=== PATIENT | female | born 1930 | race Caucasian/White ===

== ENCOUNTER 2018-06-13 10:43 | Inpatient (IN) | payer MEDICARE ==
[~2018-06-13] VITALS: Ht 157.5 cm; Wt 63.0 kg
[~2018-06-13 10:43] MED LIST: ASPI-1071 PO; HYDR-3564 PO; LISI-600 PO; NITR0.4T SL; OMEP20TA5 PO; ONDA4TAB6 PO; [UNRECOGNIZED DRUG - CODE] MC
[2018-06-13] MEDS ORDERED: LACT1CAP65 PO (11:05)
[2018-06-13] MEDS ORDERED: GLIP5TAB13 PO (11:05)
[2018-06-13] MEDS ORDERED: POTA10TA10 PO (11:05)
[2018-06-13] MEDS ORDERED: normal saline 1000ml 1,000 ML IV SCH (12:46)
[2018-06-13] MEDS ORDERED: ondansetron/PF 4mg/2ml inj IV PRN (12:50)
[2018-06-13] MEDS ORDERED: HYDROmorphone inj. 0.5 MG/0.5 ML DISP.SYRIN IV PRN (12:50)
[2018-06-13] MEDS ORDERED: magnesium 4gm in 100ml NS 100 ML IV PRN (12:50)
[2018-06-13] MEDS ORDERED: magnesium Cl slow-release 64mg tablet PO PRN (12:50)
[2018-06-13] MEDS ORDERED: potassium Cl 20 mEq SR tablet PO PRN ×2 (12:50)
[2018-06-13] MEDS ORDERED: magnesium hydroxide 30ml (MOM) UD suspension PO PRN (12:50)
[2018-06-13] MEDS ORDERED: acetaminophen 325mg tablet PO PRN (12:50)
[2018-06-13] MEDS ORDERED: magnesium 1gm/100ml D5W IVPB 100 ML IV PRN (12:50)
[2018-06-13] MEDS ORDERED: potassium Cl 40MEQ/NS 500ml 500 ML IV PRN ×2 (12:50)
[2018-06-13] MEDS ORDERED: mag hydrox/Alum hydrox/simeth 30ml oral suspension PO PRN (12:50)
[2018-06-13 18:10] VITALS: BP 93/33
[2018-06-13] MEDS ORDERED: heparin, porcine 5000 units/ml vial SQ SCH (20:00)
[2018-06-13] MEDS: lactobacillus rhamnosus 10,000 MMU CELLS/CAPSULE PO SCH (20:00)
[2018-06-13 22:00] VITALS: BP 98/26
[2018-06-13] MEDS: morphine 10mg/0.5ml (conc. morphine) oral syringe PO PRN (22:05)
[2018-06-14] MEDS: LORazepam 1 MG tablet PO PRN ×3 (03:28→22:11)
[2018-06-14 03:30] VITALS: BP 125/81
[2018-06-14 05:00] VITALS: BP 87/83
[2018-06-14 05:51] LABS: BASOPHILS % (AUTO) 0.2 % (0-1); EOSINOPHILS # (AUTO) 0.1 X10'3 (0-0.9); EOSINOPHILS % (AUTO) 0.8 % (0-6); HEMOGLOBIN 7.5 g/dl (12.0-16.0); LYMPHOCYTES # (AUTO) 0.8 X10'3 (1.1-4.8); MEAN CORPUSCULAR HEMOGLOBIN 26.7 PG (27.0-31.0); MEAN CORPUSCULAR HGB CONC 32.7 % (33.0-36.5); MEAN CORPUSCULAR VOLUME 81.8 FL (78-98); MEAN PLATELET VOLUME 9.4 FL (7.4-10.4); MONOCYTES # (AUTO) 0.4 X10'3 (0-0.9); MONOCYTES % (AUTO) 4.1 % (2-12); NEUTROPHILS # (AUTO) 9.1 X10'3 (1.8-7.7); NEUTROPHILS % (AUTO) 86.9 % (42-75); PLATELET COUNT 130 X10'3 (140-440); RED BLOOD COUNT 2.82 X10'6 (4.20-5.60); RED CELL DISTRIBUTION WIDTH 19.6 % (11.5-14.5); WHITE BLOOD COUNT 10.4 X10'3 (4.5-11.0)
[2018-06-14 06:15] LABS: ALANINE AMINOTRANSFERASE 15 U/L (12-78); ALBUMIN 1.7 G/DL (3.4-5.0); ALBUMIN/GLOBULIN RATIO 0.4 (1.1-1.5); ALKALINE PHOSPHATASE 112 IU/L (46-116); ANION GAP 17 (8-16); ASPARTATE AMINO TRANSFERASE 26 U/L (10-37); BILIRUBIN,TOTAL 1.5 MG/DL (0.1-1.0); BLOOD UREA NITROGEN 61 MG/DL (7-18); CALCIUM 7.5 MG/DL (8.5-10.1); CHLORIDE 105 MMOL/L (99-107); CREATININE 4.08 MG/DL (0.40-0.90); GLUCOSE 168 MG/DL (70-104); MAGNESIUM 1.4 MG/DL (1.5-2.4); POTASSIUM 4.9 MMOL/L (3.5-5.1); SODIUM 135 MMOL/L (135-145); TOTAL PROTEIN 6.1 G/DL (6.4-8.2); eGFR 10 ML/MIN
[2018-06-14 06:29] LABS: TOTAL CARBON DIOXIDE 13.3 MMOL/L (24-32)
[2018-06-14 06:46] LABS: ANISOCYTOSIS 2+; PLATELET ESTIMATE DECREASED
[2018-06-14] MEDS: pantoprazole 40mg Tablet.DR PO SCH (07:30)
[2018-06-14] MEDS: lactobacillus rhamnosus 10,000 MMU CELLS/CAPSULE PO SCH ×2 (08:00→19:55)
[2018-06-14] MEDS: potassium chloride 10mEq ER tablet PO SCH (08:00)
[2018-06-14] MEDS ORDERED: K and/or MAG REPLACEMENT MC SCH (08:00)
[2018-06-14] MEDS ORDERED: CefTRIAXone/D5W-Rocephin 1gm 50 ML IV SCH (08:00)
[2018-06-14 10:00] VITALS: BP 113/53
[2018-06-14] MEDS ORDERED: HYDROcodone/acetaminophen 5mg/325mg tablet PO PRN (12:00)
[2018-06-14] MEDS: morphine 10mg/0.5ml (conc. morphine) oral syringe PO PRN (21:16)
[2018-06-14 22:00] VITALS: BP 128/41
[2018-06-15 06:46] LABS: ALANINE AMINOTRANSFERASE 20 U/L (12-78); ALBUMIN 1.7 G/DL (3.4-5.0); ALBUMIN/GLOBULIN RATIO 0.4 (1.1-1.5); ALKALINE PHOSPHATASE 109 IU/L (46-116); ANION GAP 16 (8-16); ASPARTATE AMINO TRANSFERASE 29 U/L (10-37); BILIRUBIN,TOTAL 1.1 MG/DL (0.1-1.0); BLOOD UREA NITROGEN 67 MG/DL (7-18); BUN/CREATININE RATIO 15.5 (6.6-38.0); CALCIUM 7.9 MG/DL (8.5-10.1); CHLORIDE 106 MMOL/L (99-107); CREATININE 4.33 MG/DL (0.40-0.90); GLUCOSE 130 MG/DL (70-104); SODIUM 138 MMOL/L (135-145); TOTAL CARBON DIOXIDE 16.5 MMOL/L (24-32); TOTAL PROTEIN 6.2 G/DL (6.4-8.2); eGFR 10 ML/MIN
[2018-06-15] MEDS: pantoprazole 40mg Tablet.DR PO SCH ×2 (07:20→07:25)
[2018-06-15] MEDS: lactobacillus rhamnosus 10,000 MMU CELLS/CAPSULE PO SCH ×3 (07:20→20:00)
[2018-06-15] MEDS: morphine 10mg/0.5ml (conc. morphine) oral syringe PO PRN (07:21)
[2018-06-15] MEDS: potassium chloride 10mEq ER tablet PO SCH (07:24)
[2018-06-15 10:00] VITALS: BP 107/41
[2018-06-15] MEDS: LORazepam 1 MG tablet PO PRN ×2 (14:10→22:17)
[2018-06-15 22:15] VITALS: BP 171/62
[2018-06-16] MEDS: morphine 10mg/0.5ml (conc. morphine) oral syringe PO PRN ×2 (05:41→22:16)
[2018-06-16] MEDS: pantoprazole 40mg Tablet.DR PO SCH (07:30)
[2018-06-16] MEDS: lactobacillus rhamnosus 10,000 MMU CELLS/CAPSULE PO SCH ×2 (08:00→20:00)
[2018-06-16] MEDS: potassium chloride 10mEq ER tablet PO SCH (08:00)
[2018-06-16 10:00] VITALS: BP 154/76
[2018-06-16] MEDS: LORazepam 1 MG tablet PO PRN ×3 (11:57→22:56)
[2018-06-16 22:00] VITALS: BP 188/66
[2018-06-17] MEDS: LORazepam 1 MG tablet PO PRN ×2 (04:39→12:52)
[2018-06-17] MEDS: pantoprazole 40mg Tablet.DR PO SCH (07:30)
[2018-06-17] MEDS: potassium chloride 10mEq ER tablet PO SCH (08:00)
[2018-06-17] MEDS: lactobacillus rhamnosus 10,000 MMU CELLS/CAPSULE PO SCH ×2 (08:00→20:00)
[2018-06-17] MEDS: morphine 10mg/0.5ml (conc. morphine) oral syringe PO PRN (10:54)
[2018-06-17] MEDS ORDERED: OLANZapine 2.5MG tablet PO ONE (11:25)
[2018-06-17 18:00] VITALS: BP_SYST 118; BP_SYST 140; BP_DIAS 30; BP_DIAS 33
[2018-06-17 22:00] VITALS: BP 158/60
[2018-06-18] MEDS: pantoprazole 40mg Tablet.DR PO SCH (07:30)
[2018-06-18] MEDS: lactobacillus rhamnosus 10,000 MMU CELLS/CAPSULE PO SCH ×2 (08:00→20:00)
[2018-06-18] MEDS: potassium chloride 10mEq ER tablet PO SCH (08:00)
[2018-06-18 10:00] VITALS: BP 199/92
[2018-06-18] MEDS: morphine 10mg/0.5ml (conc. morphine) oral syringe PO PRN ×2 (16:06→19:59)
[2018-06-18 22:00] VITALS: BP 167/74
[2018-06-19] MEDS: morphine 10mg/0.5ml (conc. morphine) oral syringe PO PRN ×2 (00:40→14:03)
[2018-06-19] MEDS: pantoprazole 40mg Tablet.DR PO SCH (07:03)
[2018-06-19] MEDS: lactobacillus rhamnosus 10,000 MMU CELLS/CAPSULE PO SCH (07:03)
[2018-06-19] MEDS: potassium chloride 10mEq ER tablet PO SCH (07:04)
[2018-06-19 10:00] VITALS: BP 100/41
== END 2018-06-19 13:45 | DRG 871 ==
LOC: ER 10:44 → ED HOLD 12:46 → EDBEDREQ 16:19 → ORTHO 4S 17:55
PROVIDERS: ADMIT Internal Medicine; ATTEND Internal Medicine
DX: A41.9 Sepsis, unspecified organism (principal); G93.41 Metabolic encephalopathy; N39.0 Urinary tract infection, site not specified; N17.9 Acute kidney failure, unspecified; E03.9 Hypothyroidism, unspecified; E11.9 Type 2 diabetes mellitus without complications; D64.9 Anemia, unspecified; F03.90 Unspecified dementia, unspecified severity, without behavioral disturbance, psychotic disturbance, mood disturbance, and anxiety; H91.90 Unspecified hearing loss, unspecified ear; Z51.5 Encounter for palliative care; Z66 Do not resuscitate; G89.29 Other chronic pain; M54.9 Dorsalgia, unspecified; Z88.4 Allergy status to anesthetic agent; Z88.8 Allergy status to other drugs, medicaments and biological substances; Z90.49 Acquired absence of other specified parts of digestive tract; Z79.899 Other long term (current) drug therapy
CPT/HCPCS: 36415; 80053; 82948; 83735; 85025; 87040; 87070; 99285; A6212; A6213; A6250